=== PATIENT | female | born 1985 | race Caucasian/White ===

== ENCOUNTER 2018-10-27 16:53 | Emergency (ER) | payer OTHER ==
[~2018-10-27] VITALS: Ht 152.4 cm; Wt 67.3 kg
[2018-10-27 17:39] VITALS: Ht 152.4 cm; Wt 67.3 kg
[2018-10-27] MEDS ORDERED: KETOROLAC 30 MG INJ IV STA (19:57)
[2018-10-27] MEDS ORDERED: morphine 2 MG INJ IV STA (21:18)
[2018-10-27] MEDS ORDERED: NAPR-985 PO (21:47)
[2018-10-27] MEDS ORDERED: IBUP-1542 PO (22:49)
--- NOTE | 2018-10-27 22:49 | ERD ---
ER Documentation Chief Complaint Chief Complaint PELVIC PAIN RADIATING TO FLANK - HX OF ABSCESS HPI 33-year-old female with past medical history of asthma, prediabetes, status post hysterectomy 2 years ago secondary to endometriosis who presents with complaint of pelvic pain. Reports worsening pelvic pain with radiation to bilateral flanks. Has taken [place] which does not help much of her symptoms. She has numerous allergies to several classes of pain medications. She otherwise denies vaginal bleeding, discharge, fever, chills, nausea, vomiting, diarrhea, urinary symptoms. seen at [facility] emergency room for similar symptoms on 27 September, prescribed [place] and ibuprofen. Ultrasound with ovarian cyst to left ovary measuring 4.5 x 4.2 x 3.5 cm. Has been advised to follow-up with [facility] for further care and has an appointment November 09 of this year. ROS All systems reviewed and are negative except as per history of present illness. Medications Home Meds Active Scripts Ibuprofen* (Motrin*) 600 Mg Tab, 600 MG PO Q6H PRN for PAIN AND OR ELEVATED TEMP, #30 TAB Prov:HENOK SILVERMAN-Aleksey 10/27/18 Naproxen* (Naprosyn*) 500 Mg Tablet, 500 MG PO BID PRN for PAIN AND/OR INFLAMMATION, #30 TAB Prov:HENOK SILVERMAN PA-C 10/27/18 Allergies Allergies: Coded Allergies: hydromorphone (Verified Allergy, Intermediate, RASH, 10/27/18) tramadol (Verified Allergy, Intermediate, RASH, 10/27/18) PMhx/Soc Hx Miscellaneous Medical Probl: Yes (abscess) Hx Alcohol Use: No Hx Substance Use: No Hx Tobacco Use: No Smoking Status: Never smoker FmHx Family History: No diabetes, No coronary disease, No other Physical Exam Vitals Vital Signs Date Temp Pulse Resp B/P (MAP) Pulse Ox O2 O2 Flow FiO2 Time Delivery Rate 10/27/18 99.4 92 18 130/83 98 Room Air 23:05 (99) 10/27/18 99.4 94 18 163/93 100 17:39 (116) Physical Exam I have reviewed the triage vital signs. Const: Well nourished, well developed, appears stated age Eyes: PERRL, no conjunctival injection HENT: NCAT, Neck supple without meningismus CV: RRR, Warm, well-perfused extremities RESP: CTAB, Unlabored respiratory effort GI: soft, tender to palpation to hypogastrium, non-distended, no masses, no rebound or guarding MSK: No gross deformities appreciated Skin: Warm, dry. No rashes Neuro: grossly non focal Psych: Appropriate mood and affect. Results 24 hrs Laboratory Tests Test 10/27/18 20:09 10/27/18 20:18 Urine Color YELLOW Urine Clarity CLOUDY Urine pH 7.0 Urine Specific [place] 1.016 Urine Ketones NEGATIVE mg/dL Urine Nitrite NEGATIVE mg/dL Urine Bilirubin NEGATIVE mg/dL Urine Urobilinogen NEGATIVE mg/dL Urine Leukocyte Esterase NEGATIVE Cat/ul Urine Microscopic RBC 5 /HPF Urine Microscopic WBC 0 /HPF Urine Squamous Epithelial Cells FEW /HPF Urine Yeast (Budding) MANY /HPF Urine Hemoglobin 1+ mg/dL Urine Glucose NEGATIVE mg/dL Urine Total Protein NEGATIVE mg/dl POC Beta HCG, Qualitative NEGATIVE Current Medications Medications Dose Sig/Jania Start Time Status Last (Trade) Ordered Route PRN Stop Time Admin Dose Reason Admin Ketorolac 30 mg ONCE STAT 10/27/18 DC 10/27/18 Tromethamine IV 19:57 20:28 (Toradol) 10/27/18 20:00 Morphine 2 mg ONCE STAT 10/27/18 DC 10/27/18 Sulfate IV 21:18 21:30 (morphine) 10/27/18 21:20 Procedures/MDM 33-year-old female presents with complaint of pelvic pain. Their evaluation has not identified a emergent etiology for the abdominal pain. Specifically, given the very benign exam, normal laboratory studies I have a very low suspicion for appendicitis, ischemic bowel, bowel perforation, or any other life threatening disease. Course: UA unremarkable, ultrasound pelvis without acute finding, treated with IV pain medications Toradol and morphine with improvement in symptoms We will discharge with strict return precautions explained in detail, appropriate pain medications, instructed patient to follow-up with [facility] as planned DISPOSITION PLAN: We discussed follow up with the patient's primary care doctor within 24 to 48 hours. Patient counseled regarding my diagnostic impression and care plan. Prior to discharge all questions answered. Pt agrees with treatment plan and understands strict return precautions. Precautionary instructions provided including instructions to return to the ER if not improving or for any worsening or changing symptoms or concerns. Disclaimer: Inadvertent spelling and grammatical errors are likely due to EHR/dictation software use and do not reflect on the overall quality of patient care. Also, please note that the electronic time recorded on this note does not necessarily reflect the actual time of the patient encounter. Departure Diagnosis: Primary Impression: Pelvic pain Condition: Stable Patient Instructions: Pelvic Pain, Unknown Cause Referrals: [facility] YOU HAVE RECEIVED A MEDICAL SCREENING EXAM AND THE RESULTS INDICATE THAT YOU DO NOT HAVE A CONDITION THAT REQUIRES URGENT TREATMENT IN THE EMERGENCY DEPARTMENT. FURTHER EVALUATION AND TREATMENT OF YOUR CONDITION CAN WAIT UNTIL YOU ARE SEEN IN YOUR DOCTORS OFFICE WITHIN THE NEXT 1-2 DAYS. IT IS YOUR RESPONSIBILITY TO MAKE AN APPOINTMENT FOR FOLOW-UP CARE. IF YOU HAVE A PRIMARY DOCTOR --you should call your primary doctor and schedule an appointment IF YOU DO NOT HAVE A PRIMARY DOCTOR YOU CAN CALL OUR PHYSICIAN REFERRAL HOTLINE AT IF YOU CAN NOT AFFORD TO SEE A PHYSICIAN YOU CAN CHOSE FROM THE FOLLOWING [facility] [address] [facility] [facility] [address] [facility] [address] [facility] [facility] [address] [facility]. [facility] [address] [facility]. [facility]. [address] Additional Instructions: Call your primary care doctor TOMORROW for an appointment during the next 2-3 days.See the doctor sooner or return here if your condition worsens before your appointment time. HENOK SILVERMAN PA-C October 27, 2018 22:49
[2018-10-27 23:05] VITALS: BP 130/83; PULSE 92; RESP 18
== END 2018-10-27 23:16 | disposition home or self-care (01) ==
LOC: FTE 16:53
DX: R10.2 Pelvic and perineal pain (principal); J45.909 Unspecified asthma, uncomplicated
CPT/HCPCS: 76830; 76856; 81001; 81025; J1885; J2270; 96374; 96375